=== PATIENT | female | born 1960 | race Caucasian/White ===

== ENCOUNTER 2016-09-12 01:30 | Inpatient (IN) | payer OTHER ==
--- NOTE | ~2016-09-12 | CT99 ---
[facility]. [facility] A Service [facility] RADIOLOGY TEXT RESULTS PATIENT: RASHAD ROBLERO LOCATION: [facility] [id number] : 60 UNIT #: [id number] AGE: [address]: Reji Marshall MD SEX: F ORDER DR: [id number] [address] [address] [id number] E MR#: [id number] Acc #: [id number] NAME: RASHAD ROBLERO : 1960 SEX: F STUDY DATE/TIME: 09/12/2016 1:29 UNIT: SED ROOM: STUDY DESCRIPTION: CT Maxillofacial Area W Cont Attending Physician: Paxton Rodas M.D. Ordering Physician: Paxton Rodas M.D. Primary Care Physician: Paulo Balbuena M.D. MEDICAL IMAGING REPORT This report is preliminary unless electronic signature is present. EXAM CT maxillofacial and neck with contrast, 09/12/2016 HISTORY 56-year-old female in the ED complaining of right side facial and neck swelling/inflammation. Symptoms began yesterday. TECHNIQUE CT examination of the face and neck was performed from the supraorbital region through the thoracic inlet with IV contrast enhancement. Multiplanar images were reconstructed. This CT exam was performed with one or more of the following radiation dose reduction techniques: automatic exposure control, adjustment of mA and/or kV according to patient size, and iterative reconstruction. FINDINGS Facial images show subcutaneous tissue thickening and overlying skin thickening involving the pre orbital and anterior maxillary soft tissues. The findings suggest pre orbital cellulitis, and clinical correlation is recommended. No intraorbital soft tissue abnormality is seen. No evidence of abscess or other fluid collection. The paranasal sinuses are clear. Mildly enlarged lymph nodes scattered throughout the neck, likely reactive. No abscess is seen within the neck. Salivary glands and thyroid gland are within normal limits. IMPRESSION 1. Extensive skin and subcutaneous soft tissue thickening and inflammation superficial to the right orbit and right maxilla. Pre orbital cellulitis is suspected. Correlate clinically. No evidence [facility] A Service of [facility] RADIOLOGY TEXT RESULTS PATIENT: RASHAD ROBLERO LOCATION: [facility] [id number] : 60 UNIT #: [id number] AGE: [address]: Reji Marshall MD SEX: F ORDER DR: of abscess within the facial soft tissues or elsewhere within the neck. 2. No evidence of orbital cellulitis. No fluid or air is seen within the right orbit. 3. The paranasal sinuses are clear. 4. Likely mild reactive adenopathy scattered throughout the neck. Salivary glands and thyroid gland appear normal. Dictated by... Spencer Berrios M.D. THIS IS AN ELECTRONICALLY VERIFIED REPORT Spencer Berrios M.D. at 09/12/2016 5:59 AM ALINA/kimberly TD: 09/12/2016 03:35 JOB #: [id number] MEDICAL IMAGING REPORT Page 1 of 1
--- NOTE | ~2016-09-12 | CT114 ---
[facility]. [facility] A Service of [facility] RADIOLOGY TEXT RESULTS PATIENT: RASHAD ROBLERO LOCATION: [facility] : 60 UNIT #: [id number] AGE: [address]: Reji Marshall MD SEX: F ORDER DR: [id number] [address] [address] [id number] E MR#: [id number] Acc #: [id number] NAME: RASHAD ROBLERO : 1960 SEX: F STUDY DATE/TIME: 09/12/2016 1:29 UNIT: SED ROOM: STUDY DESCRIPTION: CT Soft Tissue Neck W Cont Attending Physician: Paxton Rodas M.D. Ordering Physician: Paxton Rodas M.D. Primary Care Physician: Paulo Balbuena M.D. MEDICAL IMAGING REPORT This report is preliminary unless electronic signature is present. EXAM CT neck soft tissues, 09/12/2016 For results of this exam please see report of CT maxillofacial of the same date. Dictated by... Spencer Berrios M.D. THIS IS AN ELECTRONICALLY VERIFIED REPORT Spencer Berrios M.D. at 09/12/2016 5:59 AM Ross TD: 09/12/2016 03:33 JOB #: [id number] MEDICAL IMAGING REPORT Page 1 of 1
--- NOTE | ~2016-09-12 | CO ---
Unit #: [id number] #: [id number] Patient: RASHAD ROBLERO [id number] [address] [place], [place] [address] [id number] I MR#: [id number] NAME: RASHAD ROBLERO. ROOM: 465 Age: 56 Sex: F Admission Date: 09/12/2016 : 1960 Attending Physician: Angela Wolf M.D. Primary Care Physician: Paulo Balbuena M.D. Consultation Date: 09/13/2016 CONSULTATION REPORT BRIEF HISTORY Patient is a lady who presents with increased facial swelling, eye swelling. Found to have a lesion on her right temporal region, approximately 5 days. I am asked to evaluate for possible drainage. PAST HISTORY Past history is one of hypertension, sleep apnea, gastroesophageal reflux disease, chronic bronchitis, diabetes. PAST SURGERIES She has had a pneumonectomy, a cholecystectomy, a tracheostomy. MEDICATIONS Medications are Zoloft, Neurontin, Aneudy, Coreg, Lasix, Zestril, NovoLog. SOCIAL HISTORY No smoking. No alcohol. FAMILY HISTORY Negative for GI malignancy. REVIEW OF SYSTEMS No cardiopulmonary complaints at this time. Else, 10 systems reviewed and negative. PHYSICAL EXAMINATION GENERAL: She is awake, alert and appropriate. VITAL SIGNS: Currently afebrile. HEENT: Shows swelling of her right periorbital fossa. There is a fluctuant lesion measuring approximately 2 cm in the right temporal region. The erythema appears to extend down the right facial cleft. This is tender to palpation. LUNGS: Clear to auscultation bilaterally. Breath sounds symmetric. CARDIOVASCULAR: Regular rate and rhythm. ABDOMEN: Her abdomen is soft, nontender, nondistended. I palpate no masses. No hepatosplenomegaly. EXTREMITIES: No clubbing, cyanosis or edema. DIAGNOSTIC STUDIES LABS: Labs show a white count of 11.9. Hemoglobin 11.8. ASSESSMENT Facial cellulitis with right temporal abscess. Unit #: [id number] #: [id number] Patient: RASHAD ROBLERO PLAN Recommend antibiotics and will plan for incision and drainage. Discussed in detail. Dictated by... Ely Alicea/gali TD: 09/14/2016 09:22 JOB #: [id number] CONSULTATION REPORT Page 1 of 1 X Paxton Maurice MD CONSULTATION REPORT
--- NOTE | ~2016-09-12 | DS ---
Unit #: [id number] #: [id number] Patient: RASHAD ROBLERO [id number] [address] [address] [id number] I MR#: [id number] NAME: RASHAD ROBLERO. ROOM: 465 Age: 56 Sex: F Admission Date: 09/12/2016 : 1960 Discharge Date: 09/16/2016 Attending Physician: Angela Wolf M.D. Primary Care Physician: Paulo Balbuena M.D. DISCHARGE SUMMARY FINAL DIAGNOSES 1. Right periorbital cellulitis. 2. Right temporal abscess, status post incision and drainage. 3. Wound culture positive for MRSA one plus. 4. History of asthma/chronic obstructive pulmonary disease. 5. Diabetes mellitus type 2. 6. Coronary artery disease, status post stent placement. 7. Hypertension. 8. Nicotine abuse. DISCHARGE MEDICATIONS 1. Doxycycline 100 mg p.o. b.i.d. for 10 days. 2. Vida 7.5/325 mg 1 tablet q.6 h. p.r.n. 3. Imdur ER 60 mg b.i.d. 4. Aspirin 81 mg daily. 5. Insulin 70/30 45 units b.i.d. 6. Insulin Aspart 10 mg subcutaneous b.i.d. 7. Zestril 40 mg daily. 8. Lasix 20 mg daily. 9. Coreg 3.125 mg b.i.d. 10. Nicotine 40 mg daily. 11. Januvia 100 mg daily. 12. Zoloft 100 mg b.i.d. 13. Neurontin 600 mg b.i.d. 14. Amitriptyline 25 mg at nighttime. CONSULTANTS Dr. Carlos Valentino from infectious disease services. Dr. Paxton Maurice from [facility]. PROCEDURES Right temporal abscess status post incision and drainage. This procedure was done by Dr. Mcmahan on 09/14/2016. DIAGNOSTIC DATA LABORATORY: At discharge, sodium 134, potassium 4.1, chloride 99, BUN 9, creatinine 0.6, white blood cell count 9.8, hemoglobin 11.6, hematocrit 34.8 and platelet count 186. Wound culture is positive for MRSA one plus. HOSPITAL COURSE Ms. Alfredo is a 56-year-old female who was admitted to the hospital with right facial swelling and right eye swelling. The patient was admitted to the medical/surgical unit at [facility]. The patient had reactive cervical lymphadenopathy and right-sided periorbital edema. The Unit #: [id number] #: [id number] Patient: RASHAD ROBLERO patient was started on broad spectrum IV antibiotics, Unasyn and vancomycin. Warm moist compressions were done. There was no drainage in the beginning. Dr. Maurice was consulted. The patient was taken to the emergency room and incision was done on 09/14/2016. Wound culture is MRSA. The patient received IV vancomycin during hospitalization and is being changed to doxycycline. The patient is stable and would like to go home. She is being discharged home on the above medications. PHYSICAL EXAMINATION VITALS: At discharge, blood pressure 152/81, respiratory rate 18, pulse 65, temperature 98.2, oxygen saturation 94%. HEENT: Head is normocephalic. Eye movements normal. Face, there is a dressing present. Periorbital swelling and facial swelling is much reduced. HEART: S1 and S2 positive. Regular rhythm. DISCHARGE INSTRUCTIONS 1. The patient is being discharged home in stable condition. 2. Continue doxycycline for 10 more days. 3. Follow up with [facility] in one week. 4. Wound care per [facility]. 5. Prescription for pain management is being given, written by Dr. Mcmahan. 6. Tobacco cessation counseling done. Dictated by... Ely Weeks TD: 09/17/2016 08:12 JOB #: [id number] DISCHARGE SUMMARY Page 1 of 1 X Angela Wolf MD X DISCHARGE SUMMARY
--- NOTE | ~2016-09-12 | HP ---
Unit #: [id number] #: [id number] Patient: SAYDA ROBLERO [id number] [address] [place], [place] [address] [id number] I MR#: [id number] NAME: SAYAD ROBLERO. ROOM: 465 Age: 56 Sex: F Admission Date: 09/12/2016 : 1960 Attending Physician: Angela Wolf M.D. Primary Care Physician: Paulo Balbuena M.D. HISTORY AND PHYSICAL CHIEF COMPLAINT Right facial swelling and pain. HISTORY OF PRESENT ILLNESS Ms. Sayda Roblero is a 56-year-old female with multiple medical problem including hypertension, hyperlipidemia, diabetes mellitus, coronary artery disease, status post stent placement, tobacco abuse, came because of right facial swelling. According to patient, he face started to swell about four to five days ago. She started having sore throat and started having nodules on her right neck. Her eye was starting to swell, came to ER for the above reason, because she could not tolerate pain. She was having pain in the neck area and the face area and in the throat. Does not complain of any pain in the eye. Does not complain of vesicle eruption in the skin. She did scratch a pustule and got some pus out yesterday. She does not know whether she had fever but she was having some chills. She was feeling kind of cold. Her pain level is 7 to 8/10. She does not complain of nausea or vomiting. She does not complain of abdominal pain. No complaint of constipation or diarrhea. PAST MEDICAL HISTORY 1. History of asthma/COPD. 2. Diabetes mellitus type 2 uncontrolled. 3. Coronary artery disease, status post stent placement. 4. Hypertension. 5. Nicotine abuse. SOCIAL HISTORY The patient is a smoker. Has been smoking for a long period of time, almost one pack per day. No history of alcohol abuse or drug abuse. FAMILY HISTORY The patient has a strong family history of diabetes. There are seven children, all of them have diabetes. Mother had diabetes. Mother and father both have coronary artery disease. ALLERGIES Patient is allergic to metformin. HOME MEDICATIONS Baby aspirin 81 mg daily; Zoloft 100 mg twice a day; Neurontin 600 mg twice a day; Imdur ER 60 mg twice a day; Procardia 30 mg daily; Januvia 100 mg daily; Coreg 3.125 mg twice daily, 6.25 mg daily; cetirizine 10 mg daily; Zestril 40 mg daily; amitriptyline 25 mg at bedtime; NovoLog mix 70/30 45 units twice a day; NovoLog 10 units subcu 3 times a day with Unit #: [id number] #: [id number] Patient: SAYDA ROBLERO. REVIEW OF SYMPTOM As per history of presenting illness. Ten point review of system was done. She does not complain of dizziness or syncopal episode. She does complain of throat pain but no complaint of ear pain or ear discharge, or nasal congestion. Does not complain of vision changes. Does complain of headache. Does not complain of chest pain or shortness of breath more than normal. She has been wheezing off and on. Does not complain of abdominal pain. No complaint of nausea or vomiting. No complaint of leg swelling. Skin is as per history of presenting illness. PHYSICAL EXAMINATION GENERAL: The patient is being evaluated in room 465. The patient does not seem to be in any major respiratory distress. VITAL SIGNS: Blood pressure is 88/452, respiratory rate 20, pulse is 67, temperature 98.3, oxygen saturation is 96% on room air. The patient's repeat blood pressure is 110/60. HEENT: Head is normocephalic. There is a swelling and redness around the right eye. Right face tender, swelling, increased temperature. NECK: Cervical adenopathy is present. Otherwise neck is supple. CHEST: Fair air entry, a few wheezing heard. CVS: S1 and S2 positive. Regular rhythm. ABDOMEN: Obese, soft, bowel sounds positive. EXTREMITIES: Negative edema. Pulses are palpable. 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 No focal neurological deficit. DIAGNOSTIC STUDIES LABORATORY STUDIES: WBC 13.2, hemoglobin 13.4, hematocrit 40.5, and platelet count of 200. Sodium 137, potassium 3.4, chloride 96, BUN 12, creatinine 0.6, calcium 9.4. IMAGING STUDIES: CT of maxillofacial area was done, which shows extensive skin and subcutaneous soft tissue thickening and inflammation superficial to right orbit and right maxilla. Periorbital cellulitis is suspected. No evidence of abscess within the facial soft tissue or elsewhere. ASSESSMENT AND PLAN The patient is being admitted to telemetry unit. 1. Severe right facial cellulitis. 2. Right periorbital cellulitis. 3. Cervical adenopathy secondary to above. 4. Hypokalemia. 5. Herpes zoster. 6. Hypotension with a history of hypertension. 7. Possible sepsis. 8. Diabetes mellitus type 2. 9. Coronary artery disease. 10. Tobacco abuse. PLAN Admit to Tele unit. Antibiotics are being started. IV vancomycin 1 g q.12 and IV Zosyn 3.0 g q.6 hourly. Infectious disease doctor is being consulted. IV Dilaudid 1 to 2 mg q.4 p.r.n. for pain. IV Zofran 4 mg q.6 p.r.n. for nausea and vomiting. Lovenox 40 mg subcu q. day for DVT prophylaxis. Accu-Chek a.c. and h.s. with insulin sliding scale. Blood sugar this morning is 80. We are going to hold all the insulin at this Unit #: [id number] #: [id number] Patient: SAYDA ROBLERO time. Patient's blood pressure is low. We are going to hold all of the hypertensive medications at this time. Lactic acid is being done. Blood culture is being done. Patient is being placed on IV (1) normal saline at 125 mL an hour. Nicotine patch is being prescribed. Please refer to order sheet for further orders. Plan of care discussed with patient at length. Dictated by Ely Weeks TD: 09/12/2016 11:07 JOB #: [id number] HISTORY AND PHYSICAL Page 1 of 1 X Angela Wolf MD X HISTORY AND PHYSICAL
--- NOTE | ~2016-09-12 | CO ---
Unit #: [id number] #: [id number] Patient: RASHAD ROBLERO [id number] [address] [place], [place] [address] [id number] I MR#: [id number] NAME: RASHAD ROBLERO. ROOM: 465 Age: 56 Sex: F Admission Date: 09/12/2016 : 1960 Attending Physician: Angela Wolf M.D. Primary Care Physician: Paulo Balbuena M.D. Requesting Physician: Angela Wolf M.D. Consultation Date: 09/12/2016 CONSULTATION REPORT REASON FOR CONSULTATION Facial cellulitis. HISTORY OF PRESENT ILLNESS This is a 56-year-old white female with multiple medical issues including diabetes, hypertension, hyperlipidemia, coronary artery disease who was admitted with right-sided facial swelling. Apparently, it started as a boil in the right temporal area which she scratched and some purulent drainage came out. Subsequent to that, she developed swelling in that area long with right periorbital region as well as right side of the neck. CT scan showed periorbital cellulitis but no obvious abscess was noted. She has been started on vancomycin and Unasyn. Infectious Disease is consulted for recommendation of antimicrobial therapy. She denies any headache or visual disturbances. There is no history of any injury or trauma or any other areas of infection or cellulitis. There is no history of any altered mental status changes or vomiting. PAST MEDICAL HISTORY 1. COPD. 2. Asthma. 3. Diabetes. 4. Coronary artery disease requiring stent placement. 5. Hypertension. 6. Nicotine abuse. HOME MEDICATIONS 1. Aspirin. 2. Zoloft. 3. Neurontin. 4. Imdur. 5. Procardia. 6. Januvia. 7. Coreg. 8. Cetirizine. 9. Zestril. 10. Amitriptyline. 11. NovoLog. In the hospital, she is on vancomycin and Unasyn as well as antibiotics are concerned. Home medications were continued as well. She is also on hydromorphone and Dilaudid for pain. ALLERGIES Metformin. Unit #: [id number] #: [id number] Patient: RASHAD ROBLERO REVIEW OF SYSTEMS Positive for facial pain, swelling and redness. No headache, vomiting, or fever. No chest pain, abdominal pain, nausea, vomiting, diarrhea, or dysuria, frequency, urgency, or hematuria. PHYSICAL EXAMINATION VITAL SIGNS: Vital signs are stable. Temperature 98.1, no fevers documented during this admission, heart rate 60, respirations 18, blood pressure 110/70. GENERAL: Obese, middle-aged white female, who is awake and alert and in no acute distress. FACE: There is a small boil with surrounding induration in the right temporal area and right-sided periorbital edema. There is also tender lymphadenopathy in the right sub mandible area. NECK: Supple. No JVD or edema. LUNGS: Clear. HEART: Normal. ABDOMEN: Obese, soft, nontender without organomegaly or ascites. Bowel sounds are normal. NEUROLOGIC: Nonfocal. DIAGNOSTIC STUDIES LABORATORY: Lactic acid 1.5. Sodium 137, potassium 3.4, chloride 96, CO2 is 31, BUN 12, creatinine 0.6, glucose 132. White count 13.2, hemoglobin 13.4, hematocrit 40.5, platelets 200, neutrophils 80%. IMAGING: CT of the maxillofacial area shows extensive skin and subcutaneous soft tissue thickening and inflammation superficial to the right orbit and right maxilla. Pre-orbital cellulitis was suspected. There was no evidence of abscess within the facial soft tissue. Paranasal sinuses were clear. There was also some reactive adenopathy throughout the neck. IMPRESSION Main issue is the right temporal area cellulitis with possible abscess with reactive lymphadenopathy and right-sided periorbital edema. I do not think there is cellulitis of the periorbital area clinically. It just looks like soft tissue edema without any sign of inflammation. Main infection appears to be in the right temporal area. RECOMMENDATIONS I agree with Unasyn and vancomycin. I will suggest warm, moist compressions to the right temporal area to see if any drainage occurs. This area needs to be closely monitored for development of obvious abscess which may need I and D. Further recommendation will follow. Dictated by... Ely Lopez Unit #: [id number] #: [id number] Patient: RASHAD ROBLERO TD: 09/12/2016 21:15 JOB #: [id number] CONSULTATION REPORT Page 1 of 1 X Carlos Valentino MD CONSULTATION REPORT
--- NOTE | ~2016-09-12 | OR ---
Unit #: [id number] #: [id number] Patient: RASHAD ROBLERO [id number] [address] [place], [place] [address] [id number] I MR#: [id number] NAME: RASHAD ROBLERO ROOM: [facility] Date of Procedure: 09/14/2016 Admission Date: 09/12/2016 Surgeon: Kirby Mcmahan III, M.D. : 1960 Attending Physician: Angela Wolf M.D. Primary Care Physician: Paulo Balbuena M.D. OPERATIVE REPORT PREOPERATIVE DIAGNOSIS Right temporal abscess. POSTOPERATIVE DIAGNOSIS Right temporal abscess. PROCEDURE PERFORMED Incision and drainage of right temporal abscess. ANESTHESIA General. SPECIMEN Cultures were sent to microbiology. COMPLICATIONS None apparent. INDICATIONS FOR PROCEDURE This is a 56-year-old lady, who has a right temporal abscess and also has some periorbital edema and some pain down in the right lower jaw. She is here today for incision and drainage of the right temporal abscess. She also understands that hopefully the periorbital edema will improve after the abscess was drained, but there is a possibility that there could be a separate process going on that may require Ophthalmology consultation. DESCRIPTION OF PROCEDURE After consent was obtained, the patient was brought to the operating room and placed in the supine position. General anesthetic was administered, and her right temporal area was prepped and draped in standard surgical fashion. At the pointing portion of the abscess, I made a small elliptical incision around that area. I evacuated a small purulent pocket and cultures were obtained. I did try to bluntly dissect towards the right orbital area. Once I had all the loculated areas broke up, I irrigated and had good hemostasis. I packed the wound with quarter-inch iodoform gauze. A sterile dressing was then applied. She tolerated the procedure without any problems and returned to the recovery room in stable condition. Dictated by... Kirby Mcmahan III, M.D. Unit #: [id number] #: [id number] Patient: RASHAD ROBLERO VCL/modl TD: 09/14/2016 16:22 JOB #: [id number] OPERATIVE REPORT Page 1 of 1 X Kirby Mcmahan III, MD PROCEDURE OPERATIVE NOTE
[~2016-09-12 01:30] MED LIST: ADALAT CC PO; ADALATCC PO; ADVAIR 2501 DISK W/D PO; ADVAIR 5001 DISK W/D PO; ALBUTEROL NEBS INH; ALBUTEROL17 GM IN; ALLEGRA ALLERG180 MG PO; ALLEGRA PO; ALLER-TEC10 M1 PO; ALPRAZOLAM PO; ALPRAZOLAM1 MG PO; AMOXICILLIN PO; AMOXIL500 MG PO; ASPIRIN ENTERI325 M1 PO; ASPIRIN PO; BACTRIM DS TABL1 TA1 PO; BACTROBAN22 GM TOP; BAYER ASPIRIN325 M1 PO; BENADRYL PO; BENZONATATE PO; BUPROPION HCL150 M1 PO; CARBIDOPA-1 UDTAB.S3 PO; CARBIDOPA-LEVO1 TAB PO; CARVEDILOL25 MG PO; CARVEDILOL6.25 MG PO; CERTAGEN PO; CLARITIN10 MG PO; CLINDAMYCIN HC300 MG PO; CLOPIDOGREL75 MG PO; COMBIVENT INH14.7 GM IN; COMBIVENT INH14.7 GM INH; COREG3.125 MG PO; COREG6.25 MG PO; DIATX TABLET5 MG PO; DIFLUCAN PO; DUONEB 2.5-0.5 M3 ML NEB; FLAGYL PO; FLEXERIL PO; FLORADIL; FORADIL12 MCG; FORADIL12 MCG NEB; GLUCOTROL PO; HUMALOG MI100 UNIT/5 SQ; HUMALOG MI100 UNIT/5 SUBQ; HUMALOG MIX 75/10 ML SUBQ; HUMALOG MIX 75/23 ML SQ; HUMALOG100 U/M1 SUBQ; HUMALOG100 U/M2; HYDROCODON-ACE1 EAC5 PO; HYDROCODONE-APA1 T30 PO; HYDROCODONE-APA1 T54 PO; IMDUR-ER60 MG PO; IMDUR30 MG PO; JANUVIA PO; KLONOPIN; KLONOPIN PO; KLONOPIN1 MG PO; LANTUS100 U/ML INJ; LANTUS100 U/ML SUBQ; LASIX20 MG PO; LEVAQUIN PO; LEVEMIR SUBQ; LIPITOR PO; LISINOPRIL PO; MEDROL PO; MEDROL4 MG/DOSE- PO; METFORMIN HCL500 M1 PO; MULTI-VITAMIN1 TAB PO; NAPROSYN500 MG PO; NEURONTIN600 MG PO; NIFEDICAL PO; NITROSTAT0.4 MG SL; NORCO 10/325 TA1 TAB PO; NORCO 7.5/325 T1 TAB PO; NOVOLOG100 U/ML SUBQ; NYSTATIN15 GM OINT TOP; ONGLYZA5 MG PO; OXYGEN; OXYGEN NS; PERCOCET 10/3251 TAB PO; PLAVIX PO; PRAVACHOL20 MG PO; PRAVASTATIN SOD20 MG PO; PREDNISONE10 MG PO; PRILOSEC PO; PRINIVIL40 MG PO; PROCARDIA XL PO; RANITIDINE HCL150 M1 PO; SERTRALINE HCL100 MG PO; SINEMET-25/1001 TAB PO; TOBRAMYCIN SULFA5 M1 OS; TUSSIONEX PENN473 ML PO; VISTARIL PO; VITAMIN B-6 PO; VITAMIN B6 PO; WELLBUTRIN PO; WELLBUTRIN XL PO; XANAX1 MG PO; ZANTAC150 M1 PO; ZANTAC150 MG PO; ZITHROMAX; ZITHROMAX1 G/PKT PO; ZOCOR PO; ZOLOFT PO; ZOLOFT100 MG PO; [UNRECOGNIZED DRUG - OTHER]; [UNRECOGNIZED DRUG - OTHER]; [UNRECOGNIZED DRUG - OTHER] PO; [UNRECOGNIZED DRUG - REMARK] PO
[2016-09-12 02:02] LABS: BASOPHIL# 0.1 X10e3 (0-0.3); BASOPHIL% 1.1 % (0-2.5); EOSINOPHIL# 0.1 X10e3 (0-0.7); EOSINOPHIL% 0.8 % (0.0-7.0); HEMATOCRIT 40.5 % (35.0-45.0); HEMOGLOBIN 13.4 gm/dL (12.0-16.0); LYMPHOCYTE# 1.4 X10e3 (1.0-3.5); LYMPHOCYTE% 10.7 % (17.0-45.0); MEAN CELL VOLUME 89.1 FL (83-96); MEAN CORPUSCULAR HEMOGLOBIN 29.4 PG (28-34); MEAN PLATELET VOLUME 8.9 FL (6.5-11.5); MONOCYTE# 0.9 X10e3 (0-1.0); MONOCYTE% 6.8 % (3.0-12.0); NEUTROPHIL# 10.6 X10e3 (1.5-7.1); NEUTROPHIL% 80.6 % (40-75); PLATELET COUNT 200 X10e3 (140-420); RED BLOOD COUNT 4.55 X10e (3.90-5.30); RED CELL DISTRIBUTION WIDTH 14.8 % (11.0-15.5); WHITE BLOOD COUNT 13.2 X10e3 (4.0-10.5)
[2016-09-12 02:05] LABS: DIFF IND NO
[2016-09-12 02:08] LABS: PROTHROMBIN TIME (PATIENT) 11.4 SECONDS (9.5-12.4)
[2016-09-12 02:16] LABS: CALCIUM SERUM 9.4 mg/dL (8.4-10.2); CREATININE SERUM 0.6 mg/dL (0.6-1.4); GLOM FILT RATE Estimated 101.9 mL/min (>60); PARTIAL THROMBOPLASTIN TIME 27.4 SECONDS (25.6-38.1); POTASSIUM 3.4 mmol/L (3.5-5.1)
[2016-09-12] MEDS ORDERED: WAL-ZYR10 M1 PO (09:54)
[2016-09-12] MEDS ORDERED: LISINOPRIL PO (09:55)
[2016-09-12] MEDS ORDERED: AMITRIPTYLINE H25 MG PO (09:56)
[2016-09-12] MEDS ORDERED: NOVOLOG7030 SUBQ (10:00)
[2016-09-12] MEDS ORDERED: NOVOLOG100 UNIT/1 SUBQ (10:01)
[2016-09-13 03:16] LABS: BASOPHIL# 0.1 X10e3 (0-0.3); BASOPHIL% 0.9 % (0-2.5); EOSINOPHIL# 0.2 X10e3 (0-0.7); EOSINOPHIL% 1.4 % (0.0-7.0); HEMATOCRIT 36.5 % (35.0-45.0); HEMOGLOBIN 11.8 gm/dL (12.0-16.0); LYMPHOCYTE# 1.4 X10e3 (1.0-3.5); LYMPHOCYTE% 11.4 % (17.0-45.0); MEAN CELL VOLUME 88.8 FL (83-96); MEAN CORPUSCULAR HEMOGLOBIN 28.6 PG (28-34); MEAN CORPUSCULAR HGB CONC 32.2 g/dL (30-36); MONOCYTE# 0.8 X10e3 (0-1.0); NEUTROPHIL# 9.4 X10e3 (1.5-7.1); NEUTROPHIL% 79.3 % (40-75); PLATELET COUNT 167 X10e3 (140-420); RED BLOOD COUNT 4.11 X10e (3.90-5.30); RED CELL DISTRIBUTION WIDTH 14.6 % (11.0-15.5); WHITE BLOOD COUNT 11.9 X10e3 (4.0-10.5)
[2016-09-13 03:18] LABS: DIFF IND NO
[2016-09-13 03:45] LABS: BUN/CREATININE RATIO 15.71; CALCIUM SERUM 8.2 mg/dL (8.4-10.2); CREATININE SERUM 0.7 mg/dL (0.6-1.4); GLOM FILT RATE Estimated 96.9 mL/min (>60); POTASSIUM 4.1 mmol/L (3.5-5.1)
[2016-09-14 02:56] LABS: HEMOGLOBIN 11.2 gm/dL (12.0-16.0); MEAN CELL VOLUME 87.3 FL (83-96); MEAN CORPUSCULAR HEMOGLOBIN 28.9 PG (28-34); MEAN CORPUSCULAR HGB CONC 33.1 g/dL (30-36); MEAN PLATELET VOLUME 8.8 FL (6.5-11.5); RED BLOOD COUNT 3.89 X10e (3.90-5.30); RED CELL DISTRIBUTION WIDTH 14.1 % (11.0-15.5); WHITE BLOOD COUNT 9.9 X10e3 (4.0-10.5)
[2016-09-14 04:01] LABS: BUN/CREATININE RATIO 12.85; CALCIUM SERUM 8.3 mg/dL (8.4-10.2); CREATININE SERUM 0.7 mg/dL (0.6-1.4); GLOM FILT RATE Estimated 96.9 mL/min (>60); POTASSIUM 4.3 mmol/L (3.5-5.1)
[2016-09-15 03:40] LABS: BASOPHIL# 0.1 X10e3 (0-0.3); BASOPHIL% 0.7 % (0-2.5); DIFF IND NO; EOSINOPHIL# 0.1 X10e3 (0-0.7); EOSINOPHIL% 1.4 % (0.0-7.0); HEMOGLOBIN 11.4 gm/dL (12.0-16.0); LYMPHOCYTE# 0.9 X10e3 (1.0-3.5); MEAN CELL VOLUME 88.5 FL (83-96); MEAN CORPUSCULAR HEMOGLOBIN 28.9 PG (28-34); MEAN CORPUSCULAR HGB CONC 32.6 g/dL (30-36); MEAN PLATELET VOLUME 9.2 FL (6.5-11.5); MONOCYTE# 0.9 X10e3 (0-1.0); MONOCYTE% 9.1 % (3.0-12.0); NEUTROPHIL# 7.8 X10e3 (1.5-7.1); NEUTROPHIL% 79.8 % (40-75); PLATELET COUNT 157 X10e3 (140-420); RED BLOOD COUNT 3.96 X10e (3.90-5.30); RED CELL DISTRIBUTION WIDTH 13.8 % (11.0-15.5); WHITE BLOOD COUNT 9.8 X10e3 (4.0-10.5)
[2016-09-15 04:03] LABS: BUN/CREATININE RATIO 13.33; CALCIUM SERUM 8.3 mg/dL (8.4-10.2); CREATININE SERUM 0.6 mg/dL (0.6-1.4); GLOM FILT RATE Estimated 101.9 mL/min (>60); POTASSIUM 4.1 mmol/L (3.5-5.1)
[2016-09-16 02:53] LABS: BASOPHIL# 0.1 X10e3 (0-0.3); BASOPHIL% 0.6 % (0-2.5); DIFF IND NO; EOSINOPHIL# 0.1 X10e3 (0-0.7); EOSINOPHIL% 1.4 % (0.0-7.0); HEMATOCRIT 34.8 % (35.0-45.0); HEMOGLOBIN 11.6 gm/dL (12.0-16.0); LYMPHOCYTE# 1.2 X10e3 (1.0-3.5); LYMPHOCYTE% 12.6 % (17.0-45.0); MEAN CELL VOLUME 86.5 FL (83-96); MEAN CORPUSCULAR HEMOGLOBIN 28.9 PG (28-34); MEAN CORPUSCULAR HGB CONC 33.4 g/dL (30-36); MONOCYTE# 1.2 X10e3 (0-1.0); MONOCYTE% 12.1 % (3.0-12.0); NEUTROPHIL# 7.2 X10e3 (1.5-7.1); NEUTROPHIL% 73.3 % (40-75); PLATELET COUNT 186 X10e3 (140-420); RED BLOOD COUNT 4.02 X10e (3.90-5.30); RED CELL DISTRIBUTION WIDTH 14.5 % (11.0-15.5); WHITE BLOOD COUNT 9.8 X10e3 (4.0-10.5)
[2016-09-16 03:13] LABS: CALCIUM SERUM 8.5 mg/dL (8.4-10.2); CREATININE SERUM 0.6 mg/dL (0.6-1.4); GLOM FILT RATE Estimated 101.9 mL/min (>60); POTASSIUM 4.1 mmol/L (3.5-5.1)
[2016-09-16] MEDS ORDERED: NICOTINE TRANSD14 MG TOP (13:42)
[2016-09-16] MEDS ORDERED: HYDROCODON-ACE1 EAC9 PO (13:43)
[2016-09-16] MEDS ORDERED: DOXYCYCLINE HY100 M3 PO (13:44)
== END 2016-09-16 15:00 | disposition home or self-care (01) | DRG 580 ==
LOC: SED 01:30 → C4C 09:50
PROVIDERS: Emergency Medicine; Hospitalist; Internal Medicine; Nurse Practitioner Family; Physician Assistant Medical; Surgery
PROC: 0J910ZZ Drainage of Face Subcutaneous Tissue and Fascia, Open Approach (ICD-10-PCS; principal; 2016-09-14 07:30)
DX: L03.213 Periorbital cellulitis (principal); L02.01 Cutaneous abscess of face; I95.9 Hypotension, unspecified; Z93.0 Tracheostomy status; B02.9 Zoster without complications; I10 Essential (primary) hypertension; E11.9 Type 2 diabetes mellitus without complications; J44.9 Chronic obstructive pulmonary disease, unspecified; R59.9 Enlarged lymph nodes, unspecified; E87.6 Hypokalemia; I25.10 Atherosclerotic heart disease of native coronary artery without angina pectoris; F17.210 Nicotine dependence, cigarettes, uncomplicated; J45.909 Unspecified asthma, uncomplicated; Z79.4 Long term (current) use of insulin; Z79.82 Long term (current) use of aspirin; G47.30 Sleep apnea, unspecified; K21.9 Gastro-esophageal reflux disease without esophagitis; Z90.49 Acquired absence of other specified parts of digestive tract; B95.62 Methicillin resistant Staphylococcus aureus infection as the cause of diseases classified elsewhere
CPT/HCPCS: 36415; 70487; 70491; 80048; 80202; 82947; 83605; 85025; 85027; 85610; 85730; 87040; 87070; 87075; 87077; 87186; 87205; 88304; 88312; 94640; 94760; 96365; 96367; 96375; 96376; 99285; J0295; J0690; J1170; J1650; J1815; J2185; J2270; J2405; J3010; J3370; Q9967